=== PATIENT | male | born 1980 | race Caucasian/White ===

== ENCOUNTER 2020-07-12 12:48 | Emergency (ER) | payer BC ==
[~2020-07-12] VITALS: Ht 175.3 cm; Wt 84.1 kg
[2020-07-12 12:53] VITALS: BP 128/84
== END 2020-07-12 13:10 | disposition home or self-care (01) ==
LOC: ED 12:59
DX: J02.9 Acute pharyngitis, unspecified (principal); Z20.828 Contact with and (suspected) exposure to other viral communicable diseases; R19.7 Diarrhea, unspecified; R53.83 Other fatigue; M79.10 Myalgia, unspecified site
CPT/HCPCS: 36415; 87635; 99283